=== PATIENT | male | born 1990 | race Two or more races ===

== ENCOUNTER 2019-02-27 13:12 | Emergency (ER) | payer MEDICAID ==
[~2019-02-27] VITALS: Ht 175.3 cm; Wt 97.1 kg
[2019-02-27 13:19] VITALS: Ht 175.3 cm; Wt 97.1 kg
[2019-02-27 14:24] VITALS: BP 120/73
== END 2019-02-27 14:36 | disposition home or self-care (01) ==
LOC: ED 13:12
DX: S29.012A Strain of muscle and tendon of back wall of thorax, initial encounter (principal); S86.912A Strain of unspecified muscle(s) and tendon(s) at lower leg level, left leg, initial encounter; R51 Headache; M25.552 Pain in left hip; V43.52XA Car driver injured in collision with other type car in traffic accident, initial encounter; Y93.89 Activity, other specified; Y92.488 Other paved roadways as the place of occurrence of the external cause; Y99.8 Other external cause status